=== PATIENT | male | born 1950 | race Asian ===

== ENCOUNTER 2021-07-23 21:06 | Emergency (ER) | payer OTHER, MEDICARE ==
[~2021-07-23] VITALS: Ht 170.2 cm; Wt 74.8 kg
[2021-07-23 21:06] VITALS: BP_SYST 175
--- NOTE | 2021-07-23 21:06 | NUR ---
Patient to ER bed 5 to gown for evaluation. Side rails up. Report given to .
--- NOTE | 2021-07-23 21:07 | NUR ---
Came in ER ambulatory from home this 71 year old male, AAOX4, breathing spontaneously at room air, not in distress noted. With chief complaints of abdominal pain, nausea and vomiting since 5 pm, known with hypertension and BPH, no known allergy
--- NOTE | 2021-07-23 21:15 | NUR ---
Seen and examined by Dr. Booth, ER Attending
--- NOTE | 2021-07-23 21:20 | NUR ---
carpet technician at bedside, blood drawn
--- NOTE | 2021-07-23 21:35 | NUR ---
Patient transported to radiology via wheelchair in stable condition, accompanied by VOLTAGE TESTER.
[2021-07-23 21:40] LABS: BASOPHILS % (AUTO) 0.4 % (0.0-2.0); EOSINOPHILS % (AUTO) 0.2 % (0.0-4.0); HEMATOCRIT 45.8 % (36-54); HEMOGLOBIN 15.9 g/dL (14.0-18.0); LYMPHOCYTES # (AUTO) 0.7 K/uL (1.0-5.5); LYMPHOCYTES % (AUTO) 8.9 % (20.5-51.5); MEAN CORPUSCULAR HEMOGLOBIN 32 pg (27-31); MEAN CORPUSCULAR HGB CONC 35 % (32-36); MEAN CORPUSCULAR VOLUME 91 fL (79.0-98.0); MONOCYTES # (AUTO) 0.2 K/uL (0.0-1.0); MONOCYTES % (AUTO) 2.4 % (1.7-9.3); NEUTROPHILS # (AUTO) 6.6 K/uL (1.8-7.7); NEUTROPHILS % (AUTO) 88.1 % (40.0-70.0); PLATELET COUNT (AUTO) 199 K/uL (130-430); RED BLOOD CELL COUNT(AUTO) 5.02 MIL/uL (4.2-6.2); RED CELL DISTRIBUTION WIDTH 13.9 % (9.0-15.0); WHITE BLOOD COUNT (AUTO) 7.5 K/uL (4.8-10.8)
[2021-07-23 21:49] LABS: CALCIUM 8.7 mg/dL (8.4-11.0); CREATININE 1.11 mg/dL (0.55-1.30); POTASSIUM 3.6 mmol/L (3.5-5.1)
[2021-07-23 21:55] LABS: ALBUMIN 4.2 g/dL (3.4-4.8); TOTAL BILIRUBIN 0.6 mg/dL (0.0-1.0)
[2021-07-23] MEDS ORDERED: NACL 0.9% 1,000 ML IV ONE (22:15)
[2021-07-23] MEDS ORDERED: ONDANSETRON HCL 4 MG/2 ML VIAL IVP ONE (22:15)
[2021-07-23] MEDS ORDERED: MORPHINE 4 MG INJ. 4 MG/ML VIAL IVP ONE (22:15)
[2021-07-23 22:20] LABS: BILIRUBIN,URINE NEGATIVE (NEGATIVE); BLOOD, URINE NEGATIVE (NEGATIVE); CLARITY/URINE CLEAR (CLEAR); COLOR,URINE YELLOW (YELLOW); GLUCOSE,URINE NEGATIVE (NEGATIVE); KETONES,URINE 1+ (NEGATIVE); LEUKOCYTE ESTERASE ,URINE NEGATIVE (NEGATIVE); NITRITE, URINE NEGATIVE (NEGATIVE); PROTEIN URINE NEGATIVE (NEGATIVE); UROBILINOGEN,URINE 0.2 (0.2-1.0)
--- NOTE | 2021-07-23 23:20 | NUR ---
# 22 gauge angiocath placed to RIGHT HAND. Use of asceptic technique. Opsite placed over site. Blood return noted. Flushed with 10 cc of normal saline. No evidence of infiltration noted. Patient tolerated well.
[2021-07-24] MEDS ORDERED: PANTOPRAZOLE SODIUM 40 MG/VIAL (PROTONIX) IVP ONE (00:15)
--- NOTE | 2021-07-24 01:31 | NUR ---
Re-assesed by Dr. Flannery, for discharge
[2021-07-24] MEDS ORDERED: METO-290 PO (01:42)
[2021-07-24] MEDS ORDERED: PRO40 PO (01:42)
[2021-07-24 01:58] VITALS: BP_SYST 152
--- NOTE | 2021-07-24 01:58 | NUR ---
Patient given written and verbal discharge instructions and verbalizes understanding. ER MD discussed with patient the results and treatment provided. Patient in stable condition. ID arm band removed. IV catheter removed intact and dressing applied, no active bleeding. Rx of reglan, protonix given. Patient educated on pain management and to follow up with PMD. Pain Scale 0/10. Opportunity for questions provided and answered. Medication side effect fact sheet provided.
== END 2021-07-24 01:58 | disposition home or self-care (01) ==
LOC: SED 21:06
DX: K29.70 Gastritis, unspecified, without bleeding (principal); I10 Essential (primary) hypertension; Z79.899 Other long term (current) drug therapy
CPT/HCPCS: 36415; 74176; 76376; 80053; 81003; 82150; 83690; 85025; 96361; 96374; 96375 ×2; 99284; C9113; J2270; J2405; J7030